=== PATIENT | male | born 1955 | race Caucasian/White ===

== ENCOUNTER 2019-11-27 16:16 | Outpatient (CLI) | payer BC, MEDICARE | END 2019-11-27 16:17 | disposition home or self-care (01) | LOC: COV 16:16 | PROVIDERS: ATTEND Family Medicine | DX: R05 Cough (principal) | CPT/HCPCS: 81599 ==

== ENCOUNTER 2021-05-21 11:26 | Outpatient (CLI) | payer BC, MEDICARE | END 2021-05-21 11:27 | disposition E | LOC: EMS 11:26 ==